=== PATIENT | male | born 1985 | race African-American/Black ===

== ENCOUNTER 2017-03-10 15:39 | Emergency (ER) | payer OTHER ==
[2017-03-10] MEDS ORDERED: Lidocaine 1% 20 ML MDV ONE (16:00)
[2017-03-10] MEDS ORDERED: Adacel (T-DAP) 0.5 ML VIAL ONE (16:01)
[2017-03-10] MEDS ORDERED: Bacitracin Zinc 1 Packet ONE (16:56)
== END 2017-03-10 17:13 | disposition home or self-care (01) ==
LOC: NAV ERS 15:39
DX: S61.412A Laceration without foreign body of left hand, initial encounter (principal); F17.210 Nicotine dependence, cigarettes, uncomplicated; W26.8XXA Contact with other sharp object(s), not elsewhere classified, initial encounter
CPT/HCPCS: 12002; 90471; 90715; J2001